=== PATIENT | male | born 1990 | race Caucasian/White ===

== ENCOUNTER 2019-04-07 15:16 | Emergency (ER) | payer SELFPAY ==
[~2019-04-07] VITALS: Ht 182.9 cm; Wt 78.0 kg
[2019-04-07 15:17] VITALS: Ht 182.9 cm; Wt 78.0 kg
[2019-04-07] MEDS ORDERED: DEXAMETHASONE 10 MG/ML 1 ML INJ IM ONE (16:00)
[2019-04-07] MEDS ORDERED: NAPR-985 PO (17:15)
[2019-04-07 17:31] VITALS: BP 132/78; PULSE 82; RESP 16
--- NOTE | 2019-04-07 17:34 | ERD ---
ER Documentation Chief Complaint Chief Complaint back pain x 1 year HPI This is a 28-year-old male who presents to the ED complaining of back pain x1 week. Patient states he saw his PCP about a week ago and diagnosed with sciatica. He states he has been having right lower back pain that radiates down to his right lower leg with subjective numbness and tingling. He also reports "spasm" of his foot when pointing his toe. He spoke to his PCP who recommended he remove be seen here for imaging. Patient denies any loss of bowel or bladder control. Denies any bowel or extremity numbness. Denies any difficulty ambulating. Denies any fevers or chills. No direct trauma or injury to his back. ROS All systems reviewed and are negative except as per history of present illness. Medications Home Meds Active Scripts Naproxen* (Naprosyn*) 500 Mg Tablet, 500 MG PO BID PRN for PAIN AND/OR INFLAMMATION, #30 TAB Prov:RADHA CONTRERAS PA-C 04/07/19 PMhx/Soc Medical and Surgical Hx: pt denies Medical Hx, pt denies Surgical Hx Hx Alcohol Use: No Hx Substance Use: No Hx Tobacco Use: No Smoking Status: Never smoker Physical Exam Vitals Vital Signs Date Temp Pulse Resp B/P (MAP) Pulse Ox O2 O2 Flow FiO2 Time Delivery Rate 04/07/19 98.0 82 16 132/78 99 Room Air 17:31 (96) 04/07/19 98.1 94 18 140/76 99 15:17 (97) Physical Exam Const: No acute distress Head: Atraumatic Eyes: Normal Conjunctiva ENT: Normal External Ears, Nose and Mouth. Neck: Full range of motion. No meningismus. Resp: Clear to auscultation bilaterally Cardio: Regular rate and rhythm, no murmurs Abd: Soft, non tender, non distended. Normal bowel sounds Skin: No petechiae or rashes Back: No midline or flank tenderness Ext: + Right SI joint tenderness palpation. No midline tenderness. Right lower extremity strength 4/5, left lower external strength 5/5. + Positive straight leg raise on the left, tremor of right foot when full plantarflexion. Distal pulses intact, sensation grossly intact. Neur: Awake and alert Psych: Normal Mood and Affect Results 24 hrs Current Medications Medications Dose Sig/Asael Start Time Status Last (Trade) Ordered Route PRN Stop Time Admin Dose Reason Admin 10 mg ONCE ONCE 04/07/19 DC 04/07/19 Dexamethasone IM 16:00 04/07/19 16:01 (Decadron) 16:01 Procedures/[facility]M LABS & DIAGNOSTIC IMAGING: PROCEDURE: XR Lumbar Spine. CLINICAL INDICATION: back pain TECHNIQUE: AP, lateral and cone-down lateral view of the lumbar spine were obtained. COMPARISON: No prior studies are available for comparison. FINDINGS: There are mild degenerative changes of the lumbar spine at L5-S1. There is disc space narrowing and associated enthesophytes. There is normal vertebral mineralization. There is minimal levoscoliosis.. No acute fracture is seen. There is no subluxation of vertebral bodies. The posterior elements are unremarkable. The soft tissues appear normal. RPTAT: AA IMPRESSION: Mild degenerative changes of the lumbar spine at L5-S1. Minimal levoscoliosis. ED COURSE: The patient was given Decadron The medication was well tolerated and the patient had market improvement in symptoms. The patient remained stable throughout ED course. MEDICAL DECISION MAKING: This is a 28-year-old male who presents with atraumatic back pain with subjective tingling and numbness on his right lower extremity. X-ray reveals degenerative changes at the L5-S1 region, otherwise no acute fracture or dislocation. He has no focal neurological deficits on physical exam. I have low suspicion for epidural abscess, cauda equina, cord compression, spinal tumor/mass or compression fracture. Given right foot tremor, pt likely has s ciatic nerve impingement and would benefit from outpatient MRI. Patient will be treated conservatively with appropriate pain control. Follow up with PCP in 1 week, otherwise return to the ED for any new or worsening symptoms. PRESCRIPTIONS: Naproxen SPECIALIST FOLLOW UP RECOMMENDED: None Patient has been advised to follow up with primary care in 1-2 days. Departure Diagnosis: Primary Impression: Sciatica Laterality: right Qualified Codes: M54.31 - Sciatica, right side Condition: Stable Patient Instructions: Back Pain W/ Sciatica Referrals: [facility] 7 a.m.- 11 p.m. Every Day of the Week NO APPOINTMENT OR AUTHORIZATION NEEDED Additional Instructions: Take copy of this x-ray to your appointment with your primary care provider next week. He can continue taking the ibuprofen or other anti-inflammatories to help with your back pain. I recommend MRI as outpatient. He can otherwise return here for any weakness, loss of bowel or bladder control, fevers or any other concerns. RADHA CONTRERAS PA-C Apr 07, 2019 17:34
== END 2019-04-07 17:30 | disposition home or self-care (01) ==
LOC: FTE 15:16
DX: M54.41 Lumbago with sciatica, right side (principal)
CPT/HCPCS: 72100; 96372; 99284; J1100